=== PATIENT | female | born 1985 | race American Indian/Alaskan Native ===

== ENCOUNTER 2019-10-25 09:56 | Emergency (ER) | payer MEDICAID ==
[2019-10-25 10:44] LABS: Bilirubin,Urine NEG (Negative); Blood,Urine LG (Negative); Color,Urine Yellow (Yellow); Mucus,Urine FEW /HPF; Protein,Urine <15 mg/dL mg/dL (Negative); Urobilinogen,Urine < 2.0 mg/dL (<2.0)
[2019-10-25 10:46] LABS: Basophils % (Auto) 0.3 % (0.0-1.8); Eosinophils # (Auto) 0.1 K/mm3 (0.0-0.4); Eosinophils % (Auto) 0.7 % (0.0-4.3); Hematocrit 32.8 % (30.3-42.9); Hemoglobin 10.8 gm/dl (10.1-14.3); Lymphocytes % (Auto) 21.6 % (13.4-35.0); Mean Corpuscular HGB Conc 33 % (30-34); Mean Corpuscular Volume 81 fl (79-97); Monocytes # (Auto) 0.5 K/mm3 (0.0-0.8); Monocytes % (Auto) 5.5 % (0.0-7.3); Platelet Count 260 K/mm3 (140-440); Red Blood Count 4.05 M/mm3 (3.65-5.03); Red Cell Distribution Width 16.5 % (13.2-15.2)
[2019-10-25 11:09] LABS: Alanine Aminotransferase 16 units/L (7-56); Albumin 3.6 g/dL (3.9-5); BUN/Creatinine Ratio 11; Blood Urea Nitrogen 8 mg/dL (7-17); Calcium 8.7 mg/dL (8.4-10.2); Hemolysis Index 16
[2019-10-25] MEDS ORDERED: ONDANSETRON 4 MG/2 ML INJ IV ONE (11:40)
[2019-10-25] MEDS ORDERED: MORPHINE 4 MG/1 ML INJ IV ONE (11:40)
--- NOTE | 2019-10-25 12:02 | Emergency Department Report ---
ED Abdominal Pain HPI - General Chief Complaint: Abdominal Pain Stated Complaint: SEVERE ABD PAIN Time Seen by Provider: 10/25/19 11:17 Source: patient Mode of arrival: Ambulatory Limitations: No Limitations - History of Present Illness Initial Comments: 34-year-old -[place] patient claims of periumbilical abdominal pain x last night. Patient states pain has been intermittent for the past 2 months, however worsened last night and has remained constant. She rates her pain as a 9/10 in severity and states that there is a knot that she can feel in the area. She denies any nausea/vomiting, diarrhea, hematochezia/melena. Patient states history of a . She denies any other history of abdominal issues or surgeries. MD Complaint: abdominal pain -: Sudden Location: periumbilical Severity: severe Quality: stabbing, sharp Consistency: constant Associated Symptoms: denies other symptoms - Related Data Previous Rx's Medication Instructions Recorded Last Taken Type Ibuprofen [Motrin 800 MG tab] 800 mg PO Q8HR PRN #21 tablet 10/25/19 Unknown Rx Allergies Allergy/AdvReac Type Severity Reaction Status Date / Time No Known Allergies Allergy Unverified 10/25/19 09:59 ED Review of Systems ROS: Stated complaint: SEVERE ABD PAIN Other details as noted in HPI Comment: All other systems reviewed and negative Gastrointestinal: abdominal pain. denies: nausea, vomiting, diarrhea, con stipation, hematemesis, melena, hematochezia ED Past Medical Hx - Past Medical History Previous Medical History?: No - Surgical History Past Surgical History?: Yes Additional Surgical History: - Social History Smoking Status: Never Smoker Substance Use Type: None - Medications Home Medications: Home Medications Medication Instructions Recorded Confirmed Last Taken Type Ibuprofen [Motrin 800 MG tab] 800 mg PO Q8HR PRN #21 tablet 10/25/19 Unknown Rx ED Physical Exam - General Limitations: No Limitations General appearance: alert, in no apparent distress, obese - Head Head exam: Present: atraumatic, normocephalic - Eye Eye exam: Present: normal appearance - ENT ENT exam: Present: mucous membranes moist - Respiratory Respiratory exam: Present: normal lung sounds bilaterally. Absent: respiratory distress - Cardiovascular Cardiovascular Exam: Present: regular rate, normal rhythm. Absent: systolic murmur, diastolic murmur, rubs, gallop - GI/Abdominal GI/Abdominal exam: Present: soft, tenderness, normal bowel sounds, mass (cutaneous hardened area noted in periumbilical region without overlying erythema). Absent: distended, rebound, rigid - Rectal Rectal exam: Present: deferred - Extremities Exam Extremities exam: Present: normal inspection - Back Exam Back exam: Present: normal inspection. Absent: CVA tenderness (R), CVA tenderness (L) - Neurological Exam Neurological exam: Present: alert, oriented X3 - Psychiatric Psychiatric exam: Present: normal affect, normal mood - Skin Skin exam: Present: warm, dry, intact, normal color. Absent: rash ED Course Vital Signs 10/25/19 10/25/19 10/25/19 10:06 12:01 12:02 Temperature 98.2 F Pulse Rate 80 Respiratory 16 18 18 Rate Blood Pressure 135/76 [Left] O2 Sat by Pulse 95 99 Oximetry 10/25/19 12:31 Temperature Pulse Rate Respiratory 18 Rate Blood Pressure [Left] O2 Sat by Pulse Oximetry ED Medical Decision Making - Lab Data Result diagrams: 10/25/19 10:10 10/25/19 10:10 Lab Results 10/25/19 10/25/19 10/25/19 Range/Units 10:10 10:10 10:10 WBC 9.4 (4.5-11.0) K/mm3 RBC 4.05 (3.65-5.03) M/mm3 Hgb 10.8 (10.1-14.3) gm/dl Hct 32.8 (30.3-42.9) % MCV 81 (79-97) fl MCH 27 L (28-32) pg MCHC 33 (30-34) % RDW 16.5 H (13.2-15.2) % Plt Count 260 (140-440) K/mm3 Lymph % (Auto) 21.6 (13.4-35.0) % [place] % (Auto) 5.5 (0.0-7.3) % Eos % (Auto) 0.7 (0.0-4.3) % Baso % (Auto) 0.3 (0.0-1.8) % Lymph # 2.0 (1.2-5.4) K/mm3 [place] # 0.5 (0.0-0.8) K/mm3 Eos # 0.1 (0.0-0.4) K/mm3 Baso # 0.0 (0.0-0.1) K/mm3 Seg Neutrophils % 71.9 H (40.0-70.0) % Seg Neutrophils # 6.7 (1.8-7.7) K/mm3 Sodium 138 (137-145) mmol/L Potassium 4.0 (3.6-5.0) mmol/L Chloride 104.4 (98-107) mmol/L Carbon Dioxide 22 (22-30) mmol/L Anion Gap 16 mmol/L BUN 8 (7-17) mg/dL Creatinine 0.7 (0.7-1.2) mg/dL Estimated GFR > 60 ml/min BUN/Creatinine Ratio 11 % Glucose 83 (65-100) mg/dL Calcium 8.7 (8.4-10.2) mg/dL Total Bilirubin 0.20 (0.1-1.2) mg/dL AST 17 (5-40) units/L ALT 16 (7-56) units/L Alkaline Phosphatase 84 (35-129) units/L Total Protein 7.2 (6.3-8.2) g/dL Albumin 3.6 L (3.9-5) g/dL Albumin/Globulin Ratio 1.0 % Lipase (13-60) units/L HCG, Qual Negative (Negative) Urine Color (Yellow) Urine Turbidity (Clear) Urine pH (5.0-7.0) Ur Specific [place] (1.003-1.030) Urine Protein (Negative) mg/dL Urine Glucose (UA) (Negative) mg/dL Urine Ketones (Negative) mg/dL Urine Blood (Negative) Urine Nitrite (Negative) Urine Bilirubin (Negative) Urine Urobilinogen (<2.0) mg/dL Ur Leukocyte Esterase (Negative) Urine WBC (Auto) (0.0-6.0) /HPF Urine RBC (Auto) (0.0-6.0) /HPF U Epithel Cells (Auto) (0-13.0) /HPF Urine Mucus /HPF 10/25/19 10/25/19 Range/Units 10:10 Unknown WBC (4.5-11.0) K/mm3 RBC (3.65-5.03) M/mm3 Hgb (10.1-14.3) gm/dl Hct (30.3-42.9) % MCV (79-97) fl MCH (28-32) pg MCHC (30-34) % RDW (13.2-15.2) % Plt Count (140-440) K/mm3 Lymph % (Auto) (13.4-35.0) % [place] % (Auto) (0.0-7.3) % Eos % (Auto) (0.0-4.3) % Baso % (Auto) (0.0-1.8) % Lymph # (1.2-5.4) K/mm3 [place] # (0.0-0.8) K/mm3 Eos # (0.0-0.4) K/mm3 Baso # (0.0-0.1) K/mm3 Seg Neutrophils % (40.0-70.0) % Seg Neutrophils # (1.8-7.7) K/mm3 Sodium (137-145) mmol/L Potassium (3.6-5.0) mmol/L Chloride (98-107) mmol/L Carbon Dioxide (22-30) mmol/L Anion Gap mmol/L BUN (7-17) mg/dL Creatinine (0.7-1.2) mg/dL Estimated GFR ml/min BUN/Creatinine Ratio % Glucose (65-100) mg/dL Calcium (8.4-10.2) mg/dL Total Bilirubin (0.1-1.2) mg/dL AST (5-40) units/L ALT (7-56) units/L Alkaline Phosphatase (35-129) units/L Total Protein (6.3-8.2) g/dL Albumin (3.9-5) g/dL Albumin/Globulin Ratio % Lipase 13 (13-60) units/L HCG, Qual (Negative) Urine Color Yellow (Yellow) Urine Turbidity Clear (Clear) Urine pH 6.0 (5.0-7.0) Ur Specific [place] 1.021 (1.003-1.030) Urine Protein <15 mg/dl (Negative) mg/dL Urine Glucose (UA) Neg (Negative) mg/dL Urine Ketones Neg (Negative) mg/dL Urine Blood Lg (Negative) Urine Nitrite Neg (Negative) Urine Bilirubin Neg (Negative) Urine Urobilinogen < 2.0 (<2.0) mg/dL Ur Leukocyte Esterase Neg (Negative) Urine WBC (Auto) 1.0 (0.0-6.0) /HPF Urine RBC (Auto) 7.0 (0.0-6.0) /HPF U Epithel Cells (Auto) 3.0 (0-13.0) /HPF Urine Mucus Few /HPF - Radiology Data Radiology results: report reviewed CT ABDOMEN AND PELVIS CONTRAST HISTORY: Periumbilical pain with a palpable mass. COMPARISON: No comparison imaging is available. TECHNIQUE: Routine abdominal and pelvic CT exam performed following intravenous contrast administration.. 100 cc of Omnipaque 300 was injected intravenously without incident and consent was obtained prior to the administration of contrast. All CT scans at this location are performed using CT dose reduction for [facility] by means of automated exposure control. FINDINGS: CT ABDOMEN: Lung Bases: No significant abnormality. Liver: No significant abnormality. A few tiny benign cysts. Biliary: Normal gallbladder and bile ducts. Spleen: No significant abnormality. Unenlarged. Pancreas: No significant abnormality. Adrenals: No significant abnormality. Kidneys: No significant abnormality. Lymphatics: No lymphadenopathy. Vasculature: No significant abnormality. Bowel/Peritoneum: No significant abnormality. No free air. No free fluid. Additional findings: A supraumbilical 2.5 cm wide ventral defect in the abdominal wall is located directly contiguous to the umbilicus but is separate from the umbilicus. A portion of omentum ex tends through the defect. This omental mass measures approximately 5 x 6 x 5 cm. No bowel extends into the defect. There is mild stranding in omentum that extends through the defect and omentum that remains confined within the abdomen. CT PELVIC: : No significant abnormality. Abnormal uterus and ovaries. A 2 cm follicle of the left ovary. Bilateral tubal ligation clips. Lymphatics: No lymphadenopathy. Osseous Structures: No aggressive appearing osseous lesions. Additional Findings: None IMPRESSION: 1. A supraumbilical ventral hernia with a 6 x 5 x 5 cm mass of omentum extending through the defect. Mild inflammatory changes within the omentum. 2. No bowel extends into the hernia. - Medical Decision Making 34-year-old -[place] patient claims of periumbilical abdominal pain x last night. Patient states pain has been intermittent for the past 2 months, however worsened last night and has remained constant. Patient is afebrile and nontachycardic. Wbc's are normal. CMP. CT abdomen with contrast shows 1. A supraumbilical ventral hernia with a 6 x 5 x 5 cm mass of omentum extending through the defect. Mild inflammatory changes within the omentum. 2. No bowel extends into the hernia. Discussed findings with Dr. Kendall, general surgery-states given his vitals stable and wbc's are normal, patient is okay to palpation at her office on Monday for further assessment. Patient is nontoxic appearing and in no acute distress. Discussed importance of f/u with Dr. Kendall and need for weight loss. Strict return precautions were discussed in detail with patient verbalizes und erstanding. Critical care attestation.: If time is entered above; I have spent that time in minutes in the direct care of this critically ill patient, excluding procedure time. ED Disposition Clinical Impression: Abdominal wall hernia Disposition: TO HOME OR SELFCARE Is pt being admited?: No Condition: Stable Instructions: Ventral Hernia (ED) Prescriptions: Ibuprofen [Motrin 800 MG tab] 800 mg PO Q8HR PRN #21 tablet PRN Reason: pain Referrals: MILES KENDALL MD [Staff Physician] - 2-3 Days Forms: Work/School Release Form(ED)
--- NOTE | 2019-10-25 16:13 | Cat Scan Report ---
CT ABDOMEN AND PELVIS CONTRAST HISTORY: Periumbilical pain with a palpable mass. COMPARISON: No comparison imaging is available. TECHNIQUE: Routine abdominal and pelvic CT exam performed following intravenous contrast administrat ion.. 100 cc of Omnipaque 300 was injected intravenously without incident and consent was obtained pr ior to the administration of contrast. All CT scans at this location are performed using CT dose redu ction for [facility] by means of automated exposure control. FINDINGS: CT ABDOMEN: Lung Bases: No significant abnormality. Liver: No significant abnormality. A few tiny benign cysts. Biliary: Normal gallbladder and bile ducts. Spleen: No significant abnormality. Unenlarged. Pancreas: No significant abnormality. Adrenals: No significant abnormality. Kidneys: No significant abnormality. Lymphatics: No lymphadenopathy. Vasculature: No significant abnormality. Bowel/Peritoneum: No significant abnormality. No free air. No free fluid. Additional findings: A supraumbilical 2.5 cm wide ventral defect in the abdominal wall is located dir ectly contiguous to the umbilicus but is separate from the umbilicus. A portion of omentum extends th rough the defect. This omental mass measures approximately 5 x 6 x 5 cm. No bowel extends into the de fect. There is mild stranding in omentum that extends through the defect and omentum that remains con fined within the abdomen. CT PELVIC: : No significant abnormality. Abnormal uterus and ovaries. A 2 cm follicle of the left ovary. Bilat eral tubal ligation clips. Lymphatics: No lymphadenopathy. Osseous Structures: No aggressive appearing osseous lesions. Additional Findings: None IMPRESSION: 1. A supraumbilical ventral hernia with a 6 x 5 x 5 cm mass of omentum extending through the defect. Mild inflammatory changes within the omentum. 2. No bowel extends into the hernia. Signer Name: Danny Arnold MD Signed: 10/25/2019 4:08 PM Workstation Name: [id number]
[2019-10-25] MEDS ORDERED: KETOROLAC 30 MG/1 ML INJ IV ONE (17:04)
[2019-10-25 17:27] VITALS: BP 138/75
== END 2019-10-25 18:13 | disposition home or self-care (01) ==
LOC: ED 09:56
DX: K43.9 Ventral hernia without obstruction or gangrene (principal)
CPT/HCPCS: 36415; 74177; 80053; 81001; 83690; 84703; 85025; 96374; 96375; 99284; J1885; J2270; J2405; Q9967

== ENCOUNTER 2019-12-15 18:30 | Emergency (ER) | payer MEDICAID ==
--- NOTE | 2019-12-15 19:10 | Event Note ---
ED Screening Note ED Screening Note: productive cough that began 5 days ago +congestion +rhinorrhea +body aches no n/v/d no fever states she has been taking nyquil, dayquil, ibuprofen, theraflu, warm tea PMHx none no allergies to meds LNMP: 12/09/2019 hx of tubal ligation This initial assessment/diagnostic orders/clinical plan/treatment(s) is/are subject to change based on patients health status, clinical progression and re- assessment by fellow clinical providers in the ED. Further treatment and workup at subsequent clinical providers discretion. Patient/guardian urged not to elope from the ED as their condition may be serious if not clinically assessed and managed. Initial orders include: XR chest
--- NOTE | 2019-12-15 19:41 | XRay Report ---
CHEST 2 VIEWS 1930 INDICATION / CLINICAL INFORMATION: productive cough COMPARISON: None available. FINDINGS: SUPPORT DEVICES: None. HEART / MEDIASTINUM: No significant abnormality. LUNGS / PLEURA: No significant pulmonary or pleural abnormality. No pneumothorax. ADDITIONAL FINDINGS: No significant additional findings. IMPRESSION: No significant acute abnormality Signer Name: Angel Bejarano MD Signed: 12/15/2019 7:36 PM Workstation Name: [id number]
--- NOTE | 2019-12-16 00:01 | Emergency Department Report ---
- General Chief Complaint: Upper Respiratory Infection Stated Complaint: FLY SYM Time Seen by Provider: 12/15/19 19:08 Source: patient Mode of arrival: Ambulatory Limitations: No Limitations - History of Present Illness MD Complaint: fever, cough, sore throat, rhinorrhea, nasal congestion, sinus pain -: Gradual, days(s) (5) Severity: mild Associated Symptoms: rhinorrhea, nasal congestion, sore throat, cough, nausea - Related Data Previous Rx's Medication Instructions Recorded Last Taken Type Ibuprofen [Motrin 800 MG tab] 800 mg PO Q8HR PRN #21 tablet 10/25/19 Unknown Rx traMADoL [Ultram 50 MG tab] 50 mg PO Q6HR PRN #8 tablet 10/25/19 Unknown Rx Albuterol INH(or & Nicu Only) 1 puff IH Q4-6H PRN #1 inha 12/16/19 Unknown Rx [ProAir HFA Inhaler] guaiFENesin/CODEINE [Robitussin AC] 5 ml PO Q6H PRN #120 ml 12/16/19 Unknown Rx predniSONE [Deltasone] 20 mg PO QDAY #5 tab 12/16/19 Unknown Rx predniSONE [Deltasone] 20 mg PO QDAY #5 tab 12/16/19 Unknown Rx Allergies Allergy/AdvReac Type Severity Reaction Status Date / Time No Known Allergies Allergy Unverified 10/25/19 09:59 ED Review of Systems ROS: Stated complaint: FLY SYM Other details as noted in HPI Comment: All other systems reviewed and negative Respiratory: denies: no symptoms reported ED Past Medical Hx - Past Medical History Previous Medical History?: No - Surgical History Past Surgical History?: Yes Additional Surgical History: - Social History Smoking Status: Never Smoker Substance Use Type: None - Medications Home Medications: Home Medications Medication Instructions Recorded Confirmed Last Taken Type Ibuprofen [Motrin 800 MG tab] 800 mg PO Q8HR PRN #21 tablet 10/25/19 Unknown Rx traMADoL [Ultram 50 MG tab] 50 mg PO Q6HR PRN #8 tablet 10/25/19 Unknown Rx Albuterol INH(or & Nicu Only) 1 puff IH Q4-6H PRN #1 inha 12/16/19 Unknown Rx [ProAir HFA Inhaler] guaiFENesin/CODEINE [Robitussin AC] 5 ml PO Q6H PRN #120 ml 12/16/19 Unknown Rx predniSONE [Deltasone] 20 mg PO QDAY #5 tab 12/16/19 Unknown Rx predniSONE [Deltasone] 20 mg PO QDAY #5 tab 12/16/19 Unknown Rx ED Physical Exam - General Limitations: No Limitations General appearance: alert, in no apparent distress - Head Head exam: Present: atraumatic, normocephalic - Eye Eye exam: Present: normal appearance, PERRL, EOMI Pupils: Present: normal accommodation - ENT ENT exam: Present: normal exam, mucous membranes moist, TM's normal bilaterally, other ( ) - Neck Neck exam: Present: normal inspection, full ROM - Respiratory Respiratory exam: Present: rhonchi. Absent: respiratory distress, chest wall tenderness, accessory muscle use - Cardiovascular Cardiovascular Exam: Present: regular rate, normal rhythm. Absent: systolic murmur, diastolic murmur, rubs, gallop - GI/Abdominal GI/Abdominal exam: Present: soft, normal bowel sounds - Extremities Exam Extremities exam: Present: normal inspection - Back Exam Back exam: Present: normal inspection. Absent: CVA tenderness (R), CVA tenderness (L), paraspinal tenderness, vertebral tenderness - Neurological Exam Neurological exam: Present: alert, oriented X3, CN II-XII intact. Absent: normal gait, abnormal gait - Psychiatric Psychiatric exam: Present: normal affect, normal mood - Skin Skin exam: Present: warm, dry, intact, normal color. Absent: rash ED Course Vital Signs 12/15/19 19:08 Temperature 99.3 F Pulse Rate 105 H Respiratory 20 Rate Blood Pressure 151/94 O2 Sat by Pulse 97 Oximetry Critical care attestation.: If time is entered above; I have spent that time in minutes in the direct care of this critically ill patient, excluding procedure time. ED Disposition Clinical Impression: Bronchitis, Pharyngitis Disposition: DC-01 TO HOME OR SELFCARE Is pt being admited?: No Does the pt Need Aspirin: No Condition: Stable Instructions: Acute Bronchitis (ED), Pharyngitis (ED) Referrals: [facility] [Outside] - 3-5 Days
[2019-12-16 01:04] VITALS: BP 141/77
== END 2019-12-16 01:05 | disposition home or self-care (01) ==
LOC: ED 18:30
DX: J40 Bronchitis, not specified as acute or chronic (principal); J02.9 Acute pharyngitis, unspecified; Z98.890 Other specified postprocedural states; Z79.1 Long term (current) use of non-steroidal anti-inflammatories (NSAID); Z79.899 Other long term (current) drug therapy
CPT/HCPCS: 71046